=== PATIENT | male | born 1955 | race Caucasian/White ===

== ENCOUNTER → 2018-04-16 | Outpatient (CLI) | payer OTHER ==
[~2018-04-16] MED LIST: COUMADIN 2 MG TA2 M1 PO; COUMADIN 5 MG TA5 M1; DEPO-TESTO100 MG/1 M IM; FELDENE20 MG PO; HYDROCODON-ACE1 EACH PO; PERCOCET 10-321 EACH PO; PRISTIQ50 MG PO; QUESTRAN PACKET4 GM PO; VISTARIL 25 MG25 M1 PO; ZOCOR40 MG PO
--- NOTE | ~2018-04-16 | EXE ---
[facility] [employer] [place] [address] STRESS ECHOCARDIOGRAM Name: NEGRITO BAKER Room #: REG [facility]#: [id number] Admission: 04/16/18 Attend Phys: Benjamin Mccain Discharge: Date of : 53 Date of Service: 04/16/18 1209 Report #: [id number] THIS REPORT FOR: //name// APPROVED REPORT Study performed: 04/16/2018 10:21:54 Exam: Stress Echocardiogram Indication: Syncope Patient Location: Out-Patient Stress Nurse: Cande Cage RN Status: routine Ht: 6 ft 0 in HR: 64 bpm BP: 138/80 mmHg Rhythm: NSR Medical History Allergies: No known drug allergies Procedure The patient underwent an Exercise Stress Test using the Darrel Protocol. Blood pressure, heart rate, and EKG were monitored. An Echocardiogram was performed by generation technician in four stages in quad fashion. At peak stress, four selected images were obtained and placed side by side with resting images for comparison. Stress Test Details Stress Test: Exercise stress testing was performed using a Darrel protocol. HR Resting HR: 67 bpm Max Heart Rate (APMHR): 157 bpm Max HR Achieved: 157 bpm Target HR (85% APMHR): 133 bpm % of APMHR: 100 Recovery HR: 108 bpm HR response to stress: Normal HR response to stress BP Resting BP: 138/80 mmHg Max BP: 190/90 mmHg Recovery BP: 164/78 mmHg BP response to stress: Normal blood pressure response to stress. ECG Resting ECG: Sinus Rhythm [facility] [address] [place] [address] STRESS ECHOCARDIOGRAM Name: BAKERNEGRITO Room #: [id number] Admission: 04/16/18 Attend Phys: Benjamin Mccain Discharge: Date of : 53 Date of Service: 04/16/18 1209 Report #: [id number] Stress ECG: Sinus Rhythm, nonspecific ST-T abnormalities ST Change: Non-ischemic Clinical Reason for Termination: MODERATE FATIGUE Stress Symptoms: Dyspnea Exercise duration: 6 min sec Highest Stage Achieved: Stage 2: 2.5 mph at 12% grade. Exercise capacity: 7.2 METs Pre-Stress Echo The resting Echocardiogram showed normal left ventricular contractility with an estimated Ejection Fraction of about 55%. Normal wall motion in all segments on baseline images. Post-Stress Echo The stress Echocardiogram showed normal left ventricular contractility with an estimated Ejection Fraction of about 60-65%. Normal augmentation of wall motion in all segments on post stress images. Clinical Normal augmentation of myocardial wall segments using a 17 segment model. No clinical or ECG evidence for ischemia. Conclusion Clinical Response: Non-ischemic Exercise Capacity: Average Stress ECG Response: Non-ischemic Stress Echo Images: Non-ischemic The left ventricle is normal in size and wall thickness in both the rest and stress images. Other Information Study Quality: Adequate <Conclusion> The left ventricle is normal in size and wall thickness in both the rest and stress images. <ELECTRONICALLY SIGNED> By: Artur Bonilla MD 04/16/181208 08 08 Artur Bonilla MD /INF
== END ==
LOC: CV 06:55
DX: R55 Syncope and collapse (principal)

== ENCOUNTER → 2019-11-24 | Outpatient (CLI) | payer OTHER ==
[~2019-11-24] VITALS: Ht 182.9 cm; Wt 131.5 kg
[~2019-11-24] MED LIST changes: +CHOLESTYRAMINE P4 GM PO
--- NOTE | 2019-11-25 16:06 | PATH ---
[facility] [place] [address] [place] [address] PATHOLOGY RPT PROCEDURE Name: NEGRITO BAKER Room #: REG [facility] M.R.#: [id number] Admission: 11/24/19 Date of : 53 Discharge: Report #: [id number] Path Case #: [id number] Accession Number: [id number] . 01 Material submitted: . PART A: colon - RANDOM COLON BX PART B: colon - ASCENDING COLON POLYP. Modifiers: ascending PART C: sigmoid colon - SIGMOID COLON POLYP . 01 Clinical history: . Colon cancer . 02 Diagnosis: A. Large intestine, random colon to rule out microscopic colitis, endoscopic biopsy: - Nonspecific focal acute cryptitis present. - Negative for dysplasia or malignancy. . B. Polyp, ascending colon polyp, endoscopic biopsy: - Hyperplastic polyp and a lymphoid aggregate. - Negative for dysplasia. . C. Polyp, sigmoid colon polyp, endoscopic biopsy: - Tubular adenoma identified in multiple fragments. - Negative for high-grade dysplasia. . (IUV:zeyad; 11/25/2019) MBR 11/25/2019 1332 Local . 02 Comment: Sections of the colonic mucosa designated "random colon" show focal cryptitis, and a moderately cellular lamina propria composed predominantly of lymphocytes and plasma cells and occasional eosinophils. Surface ulceration is not identified. There are no crypt abscesses, granulomas or viral inclusions. The process affects all the fragments with a similar intensity. Given the description, the differential diagnosis includes focal acute self-limited episode of colitis, resolving episode of colitis, acute/chronic diverticulitis, drug or medication-induced colitis, as well as reaction to bowel preparation. Please correlate with clinical as well as endoscopic findings. (IUV:physician practice market manager; 11/25/2019) . 02 Electronically signed: . Stephanie Hartman MD, Pathologist NPI- [id number] . 01 Gross description: . [address] [address] PATHOLOGY RPT PROCEDURE Name: NEGRITO BAKER Room #: REG CLI Cherelle.#: [id number] Admission: 11/24/19 Date of : 53 Discharge: Report #: [id number] Path Case #: [id number] A. The specimen is received in formalin labeled "Negrito Baker random colon BX to rule out microscopic colitis" and consists of multiple fragments of chávez tissue measuring 0.9 x 0.3 x 0.2 cm in aggregate which are entirely submitted in A1. . B. The specimen is received in formalin labeled "Baker, Negrito, ascending colon polyp" and consists of 2 fragments of chávez tissue measuring 0.4 x 0.2 x 0.2 cm in aggregate which are entirely submitted in B1. . C. The specimen is received in formalin labeled "Baker, Negrito, sigmoid colon polyp" and consists of 2 fragments of chávez tissue measuring 0.6 x 0.2 x 0.1 cm in aggregate which are entirely submitted in C1. (RAJESH; 11/24/2019) JFQ/SHERI 11/24/2019 2137 Local . 02 Pathologist provided ICD-10: K63.5, D12.5, C18.9 . 02 CPT . 043720, 857591, 576207 Specimen Comment: A courtesy copy of this report has been sent to [phone], [phone] Specimen Comment: [id number] Specimen Comment: Report sent to / DR SAUCEDA Specimen Comment: A duplicate report has been generated due to demographic updates. Performed at: [address] [facility], [place] [id number] MD Kimo Barber MD Phone: [phone] Performed at: [address] [id number] MD Stephanie Hartman MD Phone: [phone]
--- NOTE | 2019-11-26 11:50 | P ---
[facility] [place] [address] PROCEDURE REPORT Name: NEGRITO BAKER Room #: REG [facility] Luis Miguel#: [id number] Admission: 11/24/19 Attend Phys: Phoenix Sanabria Discharge: Date of : 53 Report #: [id number] THIS REPORT FOR: cc: Joe Ellison MD, Bernard O. MD [place],Phoenix Mendoza MD ~ CC: Joe Abdi DATE OF SERVICE: 11/24/2019 PROCEDURE PERFORMED: Colonoscopy with biopsies. HISTORY OF PRESENT ILLNESS: The patient is a 64-year-old male who presents today for routine screening 5-year followup colonoscopy. He has a family history of colon cancer in his mother. The patient has a history of bile salt diarrhea and takes cholestyramine on a daily basis, which in general controls the symptoms. DESCRIPTION OF PROCEDURE: The risks and benefits of the procedure were explained to the patient, those risks including but not limited to bleeding, perforation and the risk of sedation. He understood these risks and gave informed consent. Sedation was given using propofol per anesthesia. Next, a digital rectal exam was initially performed, which was normal. Next, using a standard Olympus colonoscope, the scope was placed in the patient's anus and advanced under direct vision to the cecum. The overall prep was good. The cecum and ileocecal valve were normal in appearance. In the ascending colon, there was a 3 mm sessile polyp. This was removed with cold forceps. Random biopsies were also obtained today to rule out the possibility of microscopic colitis. Transverse and descending colon were normal. A few scattered diverticula were noted in the sigmoid colon, no evidence of inflammation. Also noted was a 4 mm sessile polyp. This was removed with cold forceps. The rectal mucosa was normal. On retroflexion, no abnormalities were noted. Also noted in the sigmoid colon was a previous tattoo. No evidence of polyp tissue was noted. The scope was then withdrawn and the procedure terminated. The patient tolerated the procedure well. IMPRESSION: 1. Two small colonic polyps. 2. Sigmoid diverticulosis. 3. Otherwise, normal colonoscopy. RECOMMENDATIONS: 1. Await biopsy results. 2. Repeat colonoscopy in [address] [address] PROCEDURE REPORT Name: NEGRITO BAKER Cherelle Room #: REG [facility] Luis Miguel#: [id number] Admission: 11/24/19 Attend Phys: Phoenix Sanabria Discharge: Date of : 53 Report #: [id number] Thank you for allowing me to participate in his care. <ELECTRONICALLY SIGNED> By: Phoenix Abdi MD 11/26/19 1150 [id number] [id number] Phoenix Abdi MD /nt
== END | disposition home or self-care (01) ==
LOC: GI 06:57
PROVIDERS: ATTEND Specialist
DX: Z12.11 Encounter for screening for malignant neoplasm of colon (principal); Z80.0 Family history of malignant neoplasm of digestive organs; D12.5 Benign neoplasm of sigmoid colon; K62.89 Other specified diseases of anus and rectum; Z98.890 Other specified postprocedural states; Z79.899 Other long term (current) drug therapy; Z11.59 Encounter for screening for other viral diseases; Z96.653 Presence of artificial knee joint, bilateral; Z90.49 Acquired absence of other specified parts of digestive tract
CPT/HCPCS: 62110; 62900